=== PATIENT | male | born 1955 | race Caucasian/White ===

== ENCOUNTER → 2021-08-06 | Outpatient (CLI) | payer OTHER | LOC: HEART 5 07-30 09:15 | DX: I20.9 Angina pectoris, unspecified (principal); I48.92 Unspecified atrial flutter | CPT/HCPCS: 78452; A9502; J2785 ==

== ENCOUNTER → 2021-08-14 | Outpatient (CLI) | payer OTHER ==
[2021-08-14 10:34] LABS: HEMOGLOBIN 12.6 gm/dl (14.0-17.5); RED BLOOD COUNT 4.03 M/UL (4.20-5.50); WHITE BLOOD COUNT 6.3 K/UL (4.5-11.0)
== END ==
LOC: LAB 09:52
PROVIDERS: Internal Medicine Cardiovascular Disease
DX: I25.10 Atherosclerotic heart disease of native coronary artery without angina pectoris (principal); I48.92 Unspecified atrial flutter; E78.5 Hyperlipidemia, unspecified; I10 Essential (primary) hypertension
CPT/HCPCS: 36415; 71046; 80053; 80061; 84439; 84443; 84481; 85025

== ENCOUNTER 2021-08-18 09:30 | Outpatient (CLI) | payer OTHER ==
[~2021-08-18] VITALS: Ht 175.3 cm; Wt 112.6 kg
[2021-08-18] MEDS ORDERED: PRIMIDONE50 MG PO (11:04)
[2021-08-18] MEDS ORDERED: TOPIRAMATE50 MG PO (11:06)
[2021-08-18] MEDS ORDERED: LEVETIRACETAM500 MG PO (11:07)
[2021-08-18] MEDS ORDERED: LASIX 40 MG TAB40 MG PO (11:10)
[2021-08-18] MEDS ORDERED: DILTIAZEM 24HR360 MG PO (11:11)
[2021-08-18] MEDS ORDERED: DONEPEZIL HCL10 MG PO (11:13)
[2021-08-18] MEDS ORDERED: ALDACTONE 25MG25 MG PO (11:13)
[2021-08-18] MEDS ORDERED: ELIQUIS5 MG PO (11:14)
[2021-08-18] MEDS ORDERED: METOPROLOL SUC200 MG PO (11:16)
[2021-08-18] MEDS ORDERED: ATORVASTATIN CA40 MG PO (11:17)
[2021-08-18] MEDS ORDERED: CITALOPRAM HBR40 MG PO (11:18)
[2021-08-18] MEDS ORDERED: NITROGLYCERIN0.4 MG SL (11:21)
[2021-08-18] MEDS ORDERED: ONDANSETRON HCL4 MG PO (11:26)
[2021-08-18] MEDS ORDERED: BENTYL 20MG TAB20 MG PO (11:27)
[2021-08-18] MEDS ORDERED: MYRBETRIQ50 MG PO (11:28)
[2021-08-18] MEDS ORDERED: AMLODIPINE BESYL5 MG PO (17:10)
[2021-08-19 05:39] LABS: BUN/CREATININE RATIO 17 (0-10)
[2021-08-19] MEDS ORDERED: TOPROL XL100 MG PO (10:15)
== END 2021-08-19 10:51 | disposition home or self-care (01) ==
LOC: CATH 09:30 → PROG CARE 15:32 → CATH 08-19 10:51
PROVIDERS: Internal Medicine Interventional Cardiology
DX: I49.5 Sick sinus syndrome (principal); I48.3 Typical atrial flutter; I25.119 Atherosclerotic heart disease of native coronary artery with unspecified angina pectoris; E78.5 Hyperlipidemia, unspecified; I25.2 Old myocardial infarction; J45.909 Unspecified asthma, uncomplicated; J96.01 Acute respiratory failure with hypoxia; J44.9 Chronic obstructive pulmonary disease, unspecified; I48.20 Chronic atrial fibrillation, unspecified; I12.9 Hypertensive chronic kidney disease with stage 1 through stage 4 chronic kidney disease, or unspecified chronic kidney disease; N18.30 Chronic kidney disease, stage 3 unspecified; G40.909 Epilepsy, unspecified, not intractable, without status epilepticus; Z87.891 Personal history of nicotine dependence; Z88.0 Allergy status to penicillin; Z79.01 Long term (current) use of anticoagulants; Z86.73 Personal history of transient ischemic attack (TIA), and cerebral infarction without residual deficits; Z82.49 Family history of ischemic heart disease and other diseases of the circulatory system; Z95.828 Presence of other vascular implants and grafts; Z20.822 Contact with and (suspected) exposure to COVID-19
CPT/HCPCS: 36600; 71045; 80048; 82550; 82553; 82803; 84484; 86140; 93005; 93609; 93620; 93621; 94660; 94664; 99152; 99153; C1730; C1733; C1766; J1200; J1644; J1940; J2250; J2270; J2920; J2930; J3010; J7040

== ENCOUNTER → 2022-02-08 | Outpatient (CLI) | payer OTHER ==
[~2022-02-08] MED LIST: ALDACTONE 25MG25 MG PO; AMLODIPINE BESYL5 MG PO; ASPIRIN CHEWABL81 MG PO; ATORVASTATIN CA40 MG PO; BENTYL 20MG TAB20 MG PO; BREZTRI AEROS10.7 GM INH; CITALOPRAM HBR40 MG PO; DILTIAZEM 24HR360 MG PO; DONEPEZIL HCL10 MG PO; ELIQUIS5 MG PO; IRON325 M1 PO; ISORDIL TAB 3030 MG PO; LASIX 40 MG TAB40 MG PO; LEVETIRACETAM500 MG PO; LIPITOR40 MG PO; METOPROLOL SUC200 MG PO; MYRBETRIQ50 MG PO; NITROGLYCERIN0.4 MG SL; ONDANSETRON HCL4 MG PO; OXCARBAZEPINE300 MG PO; PHENOBARBITAL15 MG PO; PLAVIX 75 MG TA75 MG PO; PRIMIDONE50 MG PO; TOPIRAMATE50 MG PO; TOPROL XL50 MG PO
[2022-02-08 10:37] LABS: HEMOGLOBIN 14.2 gm/dl (14.0-17.5); RED BLOOD COUNT 4.59 M/UL (4.20-5.50); WHITE BLOOD COUNT 7.9 K/UL (4.5-11.0)
[2022-02-08 11:05] LABS: BUN/CREATININE RATIO 12 (0-10)
== END ==
LOC: LAB 09:17
PROVIDERS: Internal Medicine Cardiovascular Disease
DX: I25.119 Atherosclerotic heart disease of native coronary artery with unspecified angina pectoris (principal); R94.39 Abnormal result of other cardiovascular function study; I10 Essential (primary) hypertension
CPT/HCPCS: 36415; 80048; 85025

== ENCOUNTER 2022-02-10 11:17 | Outpatient (CLI) | payer OTHER ==
[~2022-02-10] VITALS: Ht 175.3 cm; Wt 106.1 kg
[~2022-02-10 11:17] MED LIST changes: -ASPIRIN CHEWABL81 MG PO; -BREZTRI AEROS10.7 GM INH; -IRON325 M1 PO; -ISORDIL TAB 3030 MG PO; -LIPITOR40 MG PO; -OXCARBAZEPINE300 MG PO; -PHENOBARBITAL15 MG PO; -PLAVIX 75 MG TA75 MG PO
[2022-02-10] MEDS ORDERED: ASPIRIN CHEWABL81 MG PO (12:14)
[2022-02-10] MEDS ORDERED: IRON325 M1 PO (12:15)
[2022-02-10] MEDS ORDERED: LIPITOR40 MG PO (12:15)
[2022-02-10] MEDS ORDERED: OXCARBAZEPINE300 MG PO (12:16)
[2022-02-10] MEDS ORDERED: PHENOBARBITAL15 MG PO (12:18)
[2022-02-10] MEDS ORDERED: PLAVIX 75 MG TA75 MG PO (12:18)
[2022-02-10] MEDS ORDERED: BREZTRI AEROS10.7 GM INH (12:18)
[2022-02-10] MEDS ORDERED: ISORDIL TAB 3030 MG PO (12:19)
[2022-02-11 02:09] LABS: HEMOGLOBIN 12.3 gm/dl (14.0-17.5); WHITE BLOOD COUNT 6.3 K/UL (4.5-11.0)
[2022-02-11 02:12] LABS: RED BLOOD COUNT 4.04 M/UL (4.20-5.50)
[2022-02-11 02:30] LABS: BUN/CREATININE RATIO 17 (0-10)
[2022-02-11] MEDS ORDERED: NITROGLYCERIN0.4 MG SL (08:33)
== END 2022-02-11 09:20 | disposition home or self-care (01) ==
LOC: CATH 11:17 → PROG CARE 14:49 → CATH 02-11 09:20
PROVIDERS: Internal Medicine Interventional Cardiology
DX: I25.119 Atherosclerotic heart disease of native coronary artery with unspecified angina pectoris (principal); E78.5 Hyperlipidemia, unspecified; I10 Essential (primary) hypertension; I34.0 Nonrheumatic mitral (valve) insufficiency; R94.39 Abnormal result of other cardiovascular function study; R00.1 Bradycardia, unspecified; I65.29 Occlusion and stenosis of unspecified carotid artery; F32.A Depression, unspecified; Z95.5 Presence of coronary angioplasty implant and graft; Z79.01 Long term (current) use of anticoagulants; Z79.899 Other long term (current) drug therapy; Z79.82 Long term (current) use of aspirin; Z88.0 Allergy status to penicillin; Z87.891 Personal history of nicotine dependence; Z86.79 Personal history of other diseases of the circulatory system; Z98.890 Other specified postprocedural states
CPT/HCPCS: 36415; 80048; 85027; 99152; 99153; C1725; C1769; C1874; C1887; C1894; C9600; J0583; J1644; J2250; J3010; Q9967